=== PATIENT | male | born 1965 | race Caucasian/White ===

== ENCOUNTER → 2020-02-13 | Outpatient (CLI) | payer OTHER ==
--- NOTE | 2020-02-13 10:53 | RADIOLOGY REPORT (SQ) ---
EXAM DESCRIPTION: U/S ABDOMEN LIMITED W/O DOP IMAGES COMPLETED DATE/TIME: 02/13/2020 8:19 am REASON FOR STUDY: NONALCOHOLIC STEATOHEPATITIS K75.81 NONALCOHOLIC STEATOHEPATITIS (YU) COMPARISON: None. TECHNIQUE: Dynamic and static grayscale images acquired of the abdomen and recorded on PACS. Additio nal selected color Doppler and spectral images recorded. LIMITATIONS: None. FINDINGS: PANCREAS: The visualized portions of the pancreas appear normal. LIVER: The echogenicity of the hepatic parenchyma is increased and there is associated attenuation of the far field. LIVER VASCULATURE: Normal hepatopetal directional flow in the portal veins. GALLBLADDER: The gallbladder wall measures 1.9 mm in thickness. There is no cholelithiasis, sludge o r pericholecystic fluid. ULTRASOUND-DETECTED MARISCAL'S SIGN: Negative. INTRAHEPATIC DUCTS AND COMMON DUCT: The common bile duct measures 4.1 mm in diameter. There is no di latation of the intrahepatic ducts. INFERIOR VENA CAVA: Not assessed. AORTA: Not assessed. RIGHT KIDNEY: The right kidney measures 11.5 cm in length. There is no hydronephrosis. PERITONEAL AND RIGHT PLEURAL SPACE: No ascites or effusions. OTHER: No other findings. IMPRESSION: 1. Increased echogenicity of the hepatic parenchyma suggestive of underlying diffuse he patocellular disease most commonly hepatic steatosis. 2. Normal appearance of the gallbladder. TECHNICAL DOCUMENTATION: JOB ID: [id number]- All Rights Reserved Reading location - IP/workstation name: [email or web address]
== END ==
LOC: RAD 07:12
PROVIDERS: ATTEND Physician Assistant
DX: K75.81 Nonalcoholic steatohepatitis (NASH) (principal)
CPT/HCPCS: 76705